=== PATIENT | female | born 1995 | race Caucasian/White ===

== ENCOUNTER 2019-10-29 05:56 | Inpatient (IN) ==
[2019-10-29] MEDS ORDERED: Naloxone 0.4 MG/ML INJ IVP PRN (06:04)
[2019-10-29] MEDS ORDERED: Famotidine 20 MG/2 ML VIAL IVP PRN (06:04)
[2019-10-29] MEDS ORDERED: *HR* FentaNYL (PF) 100 MCG/2 ML VIAL IVP PRN (06:04)
[2019-10-29] MEDS ORDERED: Lidocaine 1% 20 ML MDV INFILT PRN (06:04)
[2019-10-29] MEDS ORDERED: Metoclopramide 10 MG/2 ML VIAL IVP PRN (06:04)
[2019-10-29] MEDS ORDERED: miSOPROStoL 25 MCG TABLET PO ONE (06:10)
[2019-10-29 06:48] LABS: Basophils % 0.4 %; Eosinophils # 0.1 K/mcL (0.0-0.6); Eosinophils % 1.2 %; Hematocrit 35.3 % (35.3-44.9); Immature Granulocytes % 0.3 % (0-4); Lymphocytes # 2.9 K/mcL (0.6-4.6); Lymphocytes % 26.6 %; Mean Corpuscular Hemoglobin 29.7 pg (28.0-33.3); Mean Corpuscular Volume 87.4 fL (83.0-100.0); Monocytes # 0.7 K/mcL (0.0-1.3); Monocytes % 6.1 %; Neutrophils # 7.2 K/mcL (1.6-8.9); Platelet Count 191 K/mcL (140-400); Red Blood Count 4.04 M/mcL (3.82-4.97); Red Cell Distribution Width 13.4 % (11.5-14.5); Segmented Neutrophils % 65.4 %
[2019-10-29] MEDS ORDERED: EPHEDrine 50 MG/ML VIAL IVP PRN (07:36)
[2019-10-29] MEDS ORDERED: Epidural Premix (fent/bupiv) 110 ML EP SCH (07:45)
[2019-10-29] MEDS ORDERED: Ondansetron 4 MG/2 ML VIAL IVP PRN (10:53)
[2019-10-29 11:36] LABS: Amphetamine Screen,Urine Negative ng/mL (Cutoff=1000); Barbiturate Screen,Urine Negative ng/mL (Cutoff=200); Benzodiazepines Screen,Urine Negative ng/mL (Cutoff=200); Cannabinoid Screen,Urine Negative ng/mL (Cutoff = 50); Cocaine Screen,Urine Negative ng/mL (Cutoff= 300); Opiate Screen,Urine Negative ng/mL (Cutoff=300); Phencyclidine Screen,Urine Negative ng/mL (Cutoff=25)
[2019-10-29] MEDS: Ringers Solution, Lactated 1,000 ML IVC SCH ×2 (16:40→18:55)
[2019-10-29] MEDS ORDERED: Oxytocin 20 units/ LR 1000 mL 20 UNIT/1,000 ML BAG IVC ONE (16:46)
[2019-10-29] MEDS ORDERED: *HR* Ropivacaine/PF 0.5% 20 ML VIAL ONE (17:58)
[2019-10-29] MEDS ORDERED: *HR* FentaNYL (PF) 100 MCG/2 ML VIAL ONE (18:34)
[2019-10-29] MEDS ORDERED: Ropivacaine/PF 0.2% 20 ML VIAL ONE (18:36)
[2019-10-29] MEDS ORDERED: Oxytocin 20 units/ LR 1000 mL 20 UNIT/1,000 ML BAG IVC SCH ×2 (18:45→23:07)
[2019-10-29] MEDS ORDERED: Lanolin 7 G OINT...G. TP PRN (23:07)
[2019-10-29] MEDS ORDERED: Benzocaine/Menthol 56 GM AEROSOL SPRAY TP PRN (23:07)
[2019-10-29] MEDS ORDERED: Measles/Mumps/Rubella Vacc 0.5 ML VIAL SQ PRN (23:07)
[2019-10-29] MEDS ORDERED: *HR* HYDROcodone/Acet 5/325 mg TABLET PO PRN (23:07)
[2019-10-29] MEDS ORDERED: Acetaminophen 325 MG TABLET PO PRN (23:07)
[2019-10-30] MEDS: Ibuprofen 600 MG TABLET PO PRN ×3 (00:36→18:34)
[2019-10-30] MEDS ORDERED: NON-FORMULARY MEDICATION 1 EACH EACH (Prenatal Tablet 1 TAB) PO SCH (09:00)
[2019-10-30] MEDS ORDERED: Prenatal Vit/FA 1 EACH TABLET PO SCH (09:00)
[2019-10-30 20:14] VITALS: BP 127/69
== END 2019-10-30 21:09 | disposition home or self-care (01) | DRG 807 ==
LOC: 1NENULAB 05:56 → 1NENUOBS 23:05
PROVIDERS: ADMIT Advanced Practice Midwife; ATTEND Advanced Practice Midwife